=== PATIENT | female | born 1975 | race Caucasian/White ===

== ENCOUNTER 2018-10-23 21:47 | Emergency (ER) | payer BC ==
--- NOTE | 2018-10-23 22:51 | RAD REPORT ---
EXAM DESCRIPTION: RAD - Tib Fib Right - 10/23/2018 10:35 pm CLINICAL HISTORY: Right leg pain FINDINGS: Nondisplaced fracture involves the lateral malleolus with marked soft tissue swelling.
--- NOTE | 2018-10-23 22:57 | ER ---
Nurse's Notes [facility] Name: Ashley Yu Age: 43 yrs Sex: Female : 1975 Arrival Date: 10/23/2018 Time: 21:50 Bed 14 Private MD: Diagnosis: Nondisplaced fracture of lateral malleolus of right fibula Presentation: 10/23 22:05 Presenting complaint: Patient states: that she was getting out of her truck and slipped fc on a rock. Twisting her right knee and ankle. Increasing pain over the past 2 hrs. Transition of care: patient was not received from another setting of care. Onset of symptoms was October 23, 2018 at 20:00. Risk Assessment: Do you want to hurt yourself or someone else? Patient reports no desire to harm self or others. Initial Sepsis Screen: Does the patient meet any 2 criteria? HR > 90 bpm. Yes Does the patient have a suspected source of infection? No. Patient's initial sepsis screen is negative. Care prior to arrival: None. 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 - Social history:: Smoking status: Patient/guardian denies using tobacco, Patient/guardian denies using alcohol, street drugs. - Ebola Screening: : Patient negative for fever greater than or equal to 101.5 degrees Fahrenheit, and additional compatible Ebola Virus Disease symptoms Patient denies exposure to infectious person Patient denies travel to an Ebola-affected area in the 21 days before illness onset. Screenin:05 Abuse screen: Denies threats or abuse. Nutritional screening: No deficits noted. Tuberculosis screening: No symptoms or risk factors identified. Fall Risk Fall in past 12 months (25 points). No secondary diagnosis (0 pts). No IV (0 pts). Ambulatory Aid- None/Bed Rest/Nurse Assist (0 pts). Gait- Weak (10 pts.). Mental Status- Overestimates/Forgets Limitations (15 pts.). Total Major Fall Scale indicates High Risk Score (45 or more points). Fall prevention measures have been instituted. Side Rails Up X 2 Placed Close to Nursing Station Frequent Obs/Assessments Occuring Family Present and informed to notify staff if the need to leave the bedside As available patient and family educated on Fall Prevention Program and Strategies. Assessment: 23:15 General: Appears in no apparent distress. Behavior is calm, cooperative, appropriate wh for age. Pain: Complains of pain in right ankle Pain does not radiate. Pain currently is 5 out of 10 on a pain scale. Quality of pain is described as aching, Aggravated by weight bearing. 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 Cardiovascular: Capillary refill < 3 seconds. Respiratory: Airway is patent Respiratory effort is even, unlabored, Respiratory pattern is regular, symmetrical. GI: Abdomen is round non-distended. : No signs and/or symptoms were reported regarding the genitourinary system. EENT: No signs and/or symptoms were reported regarding the EENT system. Derm: Skin is intact, is healthy with good turgor, Skin is pink, warm \T\ dry. normal. Musculoskeletal: Range of motion: limited in right ankle. Vital Signs: 22:05 BP 155 / 70; Pulse 115; Resp 18; Temp 98.5(O); Pulse Ox 100% on R/A; Weight 163.29 kg fc (R); Height 5 ft. 6 in. (167.64 cm) (R); Pain 6/10; 22:05 Body Mass Index 58.10 (163.29 kg, 167.64 cm) ED Course: 21:50 Patient arrived in ED. ag3 21:52 Jaqueline Roger FNP-C is [facility]. kb 21:52 Nacho Birch MD is Attending Physician. kb 22:05 Satya Cheung is Primary Nurse. wh 22:05 Arm band placed on Patient placed in an exam room, on a stretcher. fc 22:05 Patient has correct armband on for positive identification. Bed in low position. Call fc light in reach. Side rails up X 1. Pulse ox on. NIBP on. 22:05 No provider procedures requiring assistance completed. 22:18 Triage completed. 22:35 Tib Fib Right XRAY In Process Unspecified. EDMS 23:42 Patient did not have IV access during this emergency room visit. Administered Medications: 23:27 Not Given (Patient Refused): [place] 10 mg-325 mg 1 tabs PO once; RASS on ADMIN: Combtv4, wh Very Agttd3, Agttd2, Rstlss1, AlertClm0, Drwsy-1, Lt Sdtn-2, Mod Sdtn-3, Dp Sdtn-4, UnArsble-5 23:27 Drug: TORadol - Ketorolac 15 mg Route: IM; Site: right deltoid; 23:39 Follow up: Response: No adverse reaction Outcome: 22:56 Discharge ordered by . kb 23:42 Discharged to home with crutches, with family. 23:42 Condition: good 23:42 Discharge instructions given to patient, Instructed on discharge instructions, follow up and referral plans. medication usage, crutch walking, POC Ankle Fracture Demonstrated understanding of instructions, follow-up care, medications, crutch walking, Prescriptions given X 1. 23:43 Patient left the ED. Signatures: Dispatcher [employer] EDVA Jaqueline Roger, Carri العراقي RN RN Satya More Mirlande Mobley3
--- NOTE | 2018-10-23 22:57 | EDPHYS ---
Physician Documentation [facility] Name: Ashley Yu Age: 43 yrs Sex: Female : 1975 Arrival Date: 10/23/2018 Time: 21:50 Bed 14 Private MD: ED Physician Nacho Birch HPI: 10/23 23:12 This 43 yrs old Female presents to ER via Ambulatory with complaints of Ankle Injury, kb Knee Injury. 23:12 The patient presents with an injury, pain, swelling, tenderness. The complaints affect kb the right knee, right rogers and anterior aspect of right ankle. Onset: The symptoms/episode began/occurred just prior to arrival. Context: The problem was sustained outdoors, resulted from twisting while getting out of truck, The patient can partially bear weight on the affected extremity. the patient is able to ambulate. Associated signs and symptoms: Pertinent positives: swelling, Pertinent negatives: calf tenderness, fever, nausea, numbness, rash, tingling, vomiting, warmth, weakness. Modifying factors: The symptoms are alleviated by nothing, the symptoms are aggravated by weight bearing. Severity of symptoms: At their worst the symptoms were moderate, in the emergency department the symptoms are unchanged. The patient has not experienced similar symptoms in the past. The patient has not recently seen a physician. STITCHER AROUND: 23:41 LMP N/A - wh Historical: - Allergies: 22:21 TETRACYCLINES; fc 22:21 erythromycin; fc - Home Meds: 22:21 ProAir HFA 90 mcg/actuation inhalation HFAA 2 puffs every 4 hours [Active]; fc - PMHx: 22:21 Asthma; Hypermobility of joints; fc - PSHx: 22:21 ; Cholecystectomy; fc - Immunization history:: Last tetanus immunization: unknown. - Social history:: Smoking status: Patient/guardian denies using tobacco, Patient/guardian denies using alcohol, street drugs. - Ebola Screening: : Patient negative for fever greater than or equal to 101.5 degrees Fahrenheit, and additional compatible Ebola Virus Disease symptoms Patient denies exposure to infectious person Patient denies travel to an Ebola-affected area in the 21 days before illness onset. ROS: 23:10 Constitutional: Negative for fever, chills, and weight loss, Cardiovascular: Negative kb for chest pain, palpitations, and edema, Respiratory: Negative for shortness of breath, cough, wheezing, and pleuritic chest pain, Abdomen/GI: Negative for abdominal pain, nausea, vomiting, diarrhea, and constipation, Back: Negative for injury and pain, : Negative for injury, bleeding, discharge, and swelling, Skin: Negative for injury, rash, and discoloration, Neuro: Negative for headache, weakness, numbness, tingling, and seizure. 23:10 MS/extremity: Positive for injury or acute deformity, ecchymosis, pain, swelling, tenderness. Exam: 23:10 Constitutional: This is a well developed, well nourished patient who is awake, alert, kb and in no acute distress. Head/Face: Normocephalic, atraumatic. Chest/axilla: Normal chest wall appearance and motion. Nontender with no deformity. No lesions are appreciated. Cardiovascular: Regular rate and rhythm with a normal S1 and S2. No gallops, murmurs, or rubs. Normal PMI, no JVD. No pulse deficits. Respiratory: Lungs have equal breath sounds bilaterally, clear to auscultation and percussion. No rales, rhonchi or wheezes noted. No increased work of breathing, no retractions or nasal flaring. Abdomen/GI: Soft, non-tender, with normal bowel sounds. No distension or tympany. No guarding or rebound. No evidence of tenderness throughout. Neuro: Awake and alert, GCS 15, oriented to person, place, time, and situation. Cranial nerves II-XII grossly intact. Motor strength 5/5 in all extremities. Sensory grossly intact. Cerebellar exam normal. Normal gait. 23:10 Musculoskeletal/extremity: Extremities: grossly normal except: noted in the right knee, right rogers and anterior aspect of right ankle: ecchymosis, pain, swelling, tenderness, ROM: limited active range of motion due to pain, Circulation is intact in all extremities. Sensation intact. Weight bearing: can bear weight with assistance only. Vital Signs: 22:05 BP 155 / 70; Pulse 115; Resp 18; Temp 98.5(O); Pulse Ox 100% on R/A; Weight 163.29 kg fc (R); Height 5 ft. 6 in. (167.64 cm) (R); Pain 6/10; 22:05 Body Mass Index 58.10 (163.29 kg, 167.64 cm) fc MDM: 22:05 Patient medically screened. kb 22:53 Data reviewed: vital signs, nurses notes. Data interpreted: Pulse oximetry: on room air kb is 100 %. Interpretation: normal. Test interpretation: by ED physician or midlevel provider: plain radiologic studies, nondisplaced fracture of fibula. Counseling: I had a detailed discussion with the patient and/or guardian regarding: the historical points, exam findings, and any diagnostic results supporting the discharge/admit diagnosis, radiology results, the need for outpatient follow up, a orthopedic surgeon, to return to the emergency department if symptoms worsen or persist or if there are any questions or concerns that arise at home. 10/23 22:14 Order name: Tib Fib Right XRAY; Complete Time: 22:52 kb 10/23 22:55 Order name: Crutches; Complete Time: 23:27 kb 10/23 22:55 Order name: Ortho shoe: boot; Complete Time: 23:27 kb Administered Medications: 23:27 Not Given (Patient Refused): [place] 10 mg-325 mg 1 tabs PO once; RASS on ADMIN: Combtv4, wh Very Agttd3, Agttd2, Rstlss1, AlertClm0, Drwsy-1, Lt Sdtn-2, Mod Sdtn-3, Dp Sdtn-4, UnArsble-5 23:27 Drug: TORadol - Ketorolac 15 mg Route: IM; Site: right deltoid; 23:39 Follow up: Response: No adverse reaction Disposition: 10/24 02:24 Co-signature as Attending Physician, Nacho Birch MD. rn Disposition: 10/23/18 22:56 Discharged to Home. Impression: Nondisplaced fracture of lateral malleolus of right fibula. - Condition is Stable. - Discharge Instructions: Ankle Fracture, [id number]. - Prescriptions for Diclofenac Sodium 75 mg Oral Tablet Sustained Release - take 1 tablet by ORAL route 2 times per day; 30 tablet. - Medication Reconciliation Form, Thank You Letter, Antibiotic Education, Prescription Opioid Use form. - Follow up: Emergency Department; When: As needed; Reason: Worsening of condition. Follow up: Private Physician; When: 2 - 3 days; Reason: Recheck today's complaints, Continuance of care, Re-evaluation by your physician. Signatures: Dispatcher [employer] ED Jaqueline Roger, DOT NET ARCHITECT-C DOT NET ARCHITECT-Ckb Carri Toscano RN Nacho Voss MD MD rn [place], Winsy Corrections: (The following items were deleted from the chart) 10/23 23:43 22:56 10/23/2018 22:56 Discharged to Home. Impression: Nondisplaced fracture of lateral wh malleolus of right fibula. Condition is Stable. Forms are Medication Reconciliation Form, Thank You Letter, Antibiotic Education, Prescription Opioid Use. Follow up: Emergency Department; When: As needed; Reason: Worsening of condition. Follow up: Private Physician; When: 2 - 3 days; Reason: Recheck today's complaints, Continuance of care, Re-evaluation by your physician. kb
[2018-10-23] MEDS ORDERED: KETOROLAC 30 MG/ML INJ ONE (23:13)
== END 2018-10-23 23:43 | disposition home or self-care (01) ==
LOC: ER 21:47
DX: S82.64XA Nondisplaced fracture of lateral malleolus of right fibula, initial encounter for closed fracture (principal); X50.1XXA Overexertion from prolonged static or awkward postures, initial encounter; J45.909 Unspecified asthma, uncomplicated; Z88.1 Allergy status to other antibiotic agents
CPT/HCPCS: 96372; 99284

== ENCOUNTER 2019-10-01 13:02 | Emergency (ER) | payer BC ==
[2019-10-01 14:12] LABS: Absolute Lymphocytes (CBC) 1.3 K/uL (0.7-4.9); Basophils % 0.7 % (0-1.3); Lymphocytes % 16.4 % (15.3-44.8); MPV 8.5 fL (7.6-11.3); RBC Red Blood Cell Count 5.04 M/uL (3.86-4.86)
[2019-10-01 14:22] LABS: Protime INR 1.1
--- NOTE | 2019-10-01 14:30 | RAD REPORT ---
EXAM DESCRIPTION: RAD - Chest Single View - 10/01/2019 2:22 pm CLINICAL HISTORY: CHEST PAIN COMPARISON: None TECHNIQUE: AP portable chest image was obtained 10/01/2019 2:22 pm . FINDINGS: Lungs are clear. Large body habitus and portable technique limit assessment. Heart and vas culature are normal. No measurable pleural effusion and no pneumothorax. No acute bony abnormality se en. No acute aortic findings suspected. IMPRESSION: No acute cardiopulmonary process.
[2019-10-01 14:35] LABS: ALT/SGPT 62 U/L (12-78); Albumin 3.5 g/dL (3.4-5.0); Alkaline Phosphatase 93 U/L (45-117); BUN Blood Urea Nitrogen 4 mg/dL (7-18); Bicarbonate 24 mmol/L (21-32); Bilirubin Direct 0.1 mg/dL (0-0.2); Bilirubin Total 0.5 mg/dL (0.2-1.0); Glucose Level 121 mg/dL (74-106); NT PRO-BNP 17 pg/mL (<125); Protein, Total 8.2 g/dL (6.4-8.2); Sodium Level 140 mmol/L (136-145); Troponin (Emerg Dept Use Only) < 0.02 ng/mL (0.0-0.045)
[2019-10-01 14:36] LABS: AST/SGOT 29 U/L (15-37); Potassium 3.6 mmol/L (3.5-5.1)
[2019-10-01] MEDS ORDERED: KETOROLAC 30 MG/ML INJ ONE (15:16)
--- NOTE | 2019-10-01 17:07 | EDPHYS ---
Physician Documentation [facility] Name: Reina Yu Age: 44 yrs Sex: Female : 1975 Arrival Date: 10/01/2019 Time: 13:05 Bed 6 Private MD: ED Physician Nacho Birch HPI: 09/30 13:42 This 44 yrs old Female presents to ER via Wheelchair with complaints of Chest jmm Pain. 13:42 The patient or guardian reports chest pain that is located primarily in the substernal jmm area. Onset: gradually, at 02:00. The pain radiates to the left arm. Associated signs and symptoms: Pertinent positives: lightheadedness. The chest pain is described as aching, sharp. Duration: The patient or guardian reports a single episode, that is still ongoing, but improving. Modifying factors: The symptoms are alleviated by nothing. the symptoms are aggravated by nothing. The patient has experienced similar episodes in the past. Patient states having chest pain which has been ongoing. Initially evaluated at [facility] 10/07/2019. Patient was then evaluation by ortho on 10/12/2019. Pain may be due to cervical radiculopathy. Pain returned this am at 0200. Has decreased in intensity but never fully resolved. . DIRECTOR CLOUD TRANSFORMATION: 13:16 LMP 09/20/2019 ca1 Historical: - Allergies: 13:16 Erythromycin; ca1 13:16 TETRACYCLINES; ca1 - Home Meds: 13:16 metoprolol tartrate 50 mg Oral tab 1 tab 2 times per day [Active]; ProAir HFA 90 ca1 mcg/actuation inhalation HFAA 2 puffs every 4 hours [Active]; - PMHx: 13:16 Asthma; Hypermobility of joints; Hypertension; ca1 - PSHx: 13:16 ; Cholecystectomy; ca1 - Immunization history:: Adult Immunizations up to date. - Social history:: Smoking status: Patient denies any tobacco usage or history of. ROS: 13:42 Constitutional: Negative for fever, chills, and weight loss. jmm 13:42 Cardiovascular: Positive for chest pain. 13:42 MS/extremity: Positive for pain. 13:42 All other systems are negative. Exam: 13:30 ECG was reviewed by the Attending Physician. jmm 13:42 Constitutional: This is a well developed, well nourished patient who is awake, alert, jmm and in no acute distress. Head/Face: atraumatic. Eyes: EOMI, no conjunctival erythema appreciated ENT: Moist Mucus Membranes Neck: Trachea midline, Supple Chest/axilla: Normal chest wall appearance and motion. Cardiovascular: Regular rate and rhythm. No edema appreciated Respiratory: Normal respirations, no respiratory distress appreciated Abdomen/GI: Non distended, soft Back: Normal ROM Skin: General appearance color normal MS/ Extremity: Moves all extremities, no obvious deformities appreciated, no edema noted to the lower extremities Neuro: Awake and alert, normal gait Psych: Behavior is normal, Mood is normal, Patient is cooperative and pleasant Vital Signs: 13:13 BP 120 / 69; Pulse 95; Resp 15 S; Temp 98.4(TE); Pulse Ox 100% on R/A; Weight 165.56 kg ca1 (R); Height 5 ft. 6 in. (167.64 cm) (R); Pain 4/10; 13:41 BP 136 / 109; Pulse 102; Resp 18; Temp 98.3; Pulse Ox 98% on R/A; ks7 14:50 BP 120 / 72; Pulse 98; Resp 18; Pulse Ox 98% ; mt2 16:08 BP 126 / 84; Pulse 90; Resp 19; Pulse Ox 99% ; bp 17:03 BP 136 / 97; Pulse 100; Resp 18; Pulse Ox 100% ; bp 13:13 Body Mass Index 58.91 (165.56 kg, 167.64 cm) ca1 MDM: 13:44 Patient medically screened. [facility] 17:00 The patient's pulmonary embolism risk score was calculated as follows: No Risks (0 [facility] Pts). Data reviewed: vital signs, nurses notes. Counseling: I had a detailed discussion with the patient and/or guardian regarding: the historical points, exam findings, and any diagnostic results supporting the discharge/admit diagnosis, the need for outpatient follow up, to return to the emergency department if symptoms worsen or persist or if there are any questions or concerns that arise at home. ED course: Chest pain has decreased. Advised to follow up with cardiology for further evaluation. patient is otherwise given strict return precautions. patient understood and agrees with the plan of care. . 09/30 13:42 Order name: Basic Metabolic Panel; Complete Time: 14:39 [facility] 09/30 13:42 Order name: CBC with Diff; Complete Time: 14:39 [facility] 09/30 13:42 Order name: LFT's; Complete Time: 14:39 [facility] 09/30 13:42 Order name: Magnesium; Complete Time: 14:39 [facility] 09/30 13:42 Order name: NT PRO-BNP; Complete Time: 14:39 [facility] 09/30 13:42 Order name: PT-INR; Complete Time: 14:39 [facility] 09/30 13:42 Order name: Troponin (emerg Dept Use Only); Complete Time: 14:39 [facility] 09/30 13:42 Order name: XRAY Chest (1 view); Complete Time: 14:34 [facility] 09/30 13:42 Order name: EKG; Complete Time: 13:43 [facility] 09/30 13:42 Order name: Cardiac monitoring; Complete Time: 13:47 [facility] 09/30 13:42 Order name: EKG - Nurse/Tech; Complete Time: 13:47 [facility] 09/30 15:57 Order name: Troponin (emerg Dept Use Only); Complete Time: 16:47 09/30 13:42 Order name: IV Saline Lock; Complete Time: 14:04 [facility] 09/30 13:42 Order name: Labs collected and sent; Complete Time: 14:04 [facility] 09/30 13:42 Order name: O2 Per Protocol; Complete Time: 13:48 [facility] 09/30 13:42 Order name: O2 Sat Monitoring; Complete Time: 13:48 jmm EC:30 Rate is 97 beats/min. Rhythm is regular. QRS [place] is Normal. [place] interval is normal. QRS jmm interval is normal. QT interval is normal. No Q waves. T waves are Flattened in leads I, II, III, aVL, V1. No ST changes noted. Reviewed by me. Administered Medications: 15:16 Drug: Ketorolac 30 mg Route: IVP; Site: left antecubital; mt2 15:45 Follow up: Response: Pain is decreased mt2 Disposition: 18:01 Co-signature as Attending Physician, Nacho Birch MD. rn Disposition: 10/01/19 17:07 Discharged to Home. Impression: Chest pain, unspecified. - Condition is Stable. - Discharge Instructions: Nonspecific Chest Pain. - Prescriptions for orphenadrine citrate 100 mg Oral Tablet Sustained Release - take 1 tablet by ORAL route 2 times per day As needed; 20 tablet. - Medication Reconciliation Form, Thank You Letter, Antibiotic Education, Prescription Opioid Use form. - Follow up: Private Physician; When: 2 - 3 days; Reason: Recheck today's complaints, Continuance of care, Re-evaluation by your physician. Follow up: Art Kraft MD; When: 2 - 3 days; Reason: Recheck today's complaints, Continuance of care, Re-evaluation by your physician. Follow up: Janes Warner MD; When: 2 - 3 days; Reason: Recheck today's complaints, Continuance of care, Re-evaluation by your physician. Signatures: Dispatcher [employer] EDMS Ashutosh Sequeira PA PA m Nacho Birch MD MD rn [place], Brian RN RN bp Acob, Michelle RN RN ca1 Becky Auguste RN RN mt2 Corrections: (The following items were deleted from the chart) 17:07 17:07 10/01/2019 17:07 Discharged to Home. Impression: Chest pain, unspecified. jmm Condition is Stable. Forms are Medication Reconciliation Form, Thank You Letter, Antibiotic Education, Prescription Opioid Use. Follow up: Private Physician; When: 2 - 3 days; Reason: Recheck today's complaints, Continuance of care, Re-evaluation by your physician. [facility] 17:40 17:07 10/01/2019 17:07 Discharged to Home. Impression: Chest pain, unspecified. bp Condition is Stable. Discharge Instructions: Nonspecific Chest Pain. Forms are Medication Reconciliation Form, Thank You Letter, Antibiotic Education, Prescription Opioid Use. Follow up: Private Physician; When: 2 - 3 days; Reason: Recheck today's complaints, Continuance of care, Re-evaluation by your physician. Follow up: Art Kraft; When: 2 - 3 days; Reason: Recheck today's complaints, Continuance of care, Re-evaluation by your physician. Follow up: Janes Warner; When: 2 - 3 days; Reason: Recheck today's complaints, Continuance of care, Re-evaluation by your physician. [facility]
--- NOTE | 2019-10-01 17:07 | ER ---
Nurse's Notes [facility] Name: Reina Yu Age: 44 yrs Sex: Female : 1975 Arrival Date: 10/01/2019 Time: 13:05 Bed 6 Private MD: Diagnosis: Chest pain, unspecified Presentation: 09/30 13:13 Chief complaint: Patient states: Chest pain since 0200 psych arnp, tight and ca1 radiating to the L arm. Reports lightheadedness and nausea. Coronavirus screen: Proceed with normal triage. Patient denies a cough. Patient denies shortness of breath or difficulty breathing. Patient denies measured and/or subjective temperature greater than 100.4F prior to today's visit. Patient denies travel on a cruise ship or to a country the [facility] currently lists as an affected area. Patient denies contact with known and/or suspected case of COVID-19. Ebola Screen: Patient negative for fever greater than or equal to 101.5 degrees Fahrenheit, and additional compatible Ebola Virus Disease symptoms Patient denies exposure to infectious person. Patient denies travel to an Ebola-affected area in the 21 days before illness onset. No symptoms or risks identified at this time. Initial Sepsis Screen: Does the patient meet any 2 criteria? No. Patient's initial sepsis screen is negative. Does the patient have a suspected source of infection? No. Patient's initial sepsis screen is negative. Risk Assessment: Do you want to hurt yourself or someone else? Patient reports no desire to harm self or others. Onset of symptoms was October 01, 2019. 13:13 Method Of Arrival: Wheelchair ca1 13:13 Acuity: LESLIE 3 ca1 Triage Assessment: 13:19 General: Appears in no apparent distress. uncomfortable, Behavior is cooperative, bp appropriate for age, anxious. Pain: Complains of pain in chest. EENT: No deficits noted. Neuro: No deficits noted. Cardiovascular: Reports chest pain, lightheadedness. Respiratory: No deficits noted. GI: No signs and/or symptoms were reported involving the gastrointestinal system. : No signs and/or symptoms were reported regarding the genitourinary system. Derm: No deficits noted. Musculoskeletal: No deficits noted. 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 - Social history:: Smoking status: Patient denies any tobacco usage or history of. Screenin:21 Abuse screen: Denies threats or abuse. Denies injuries from another. Nutritional bp screening: No deficits noted. Tuberculosis screening: No symptoms or risk factors identified. Fall Risk None identified. Assessment: 13:21 General: SEE TRIAGE NOTE. Pain: Pain does not radiate. Pain began 12 HR AGO. bp 13:43 Also complains of dizziness/lightheaded. intermittent nausea. Neuro: Reports dizziness, ks7 last night at onset of CP. 13:45 Cardiovascular: Reports chest pain, lightheadedness, nausea, since started last night, ks7 today in ER c/o intermittent sharp, stabbing L sided CP, rates 5/10. Respiratory: No deficits noted. GI: Reports nausea, last night. : No deficits noted. Derm: No deficits noted. Musculoskeletal: No signs and/or symptoms reported regarding the musculoskeletal system. Reports chronic back pain hx of cervical radiculopathy. 14:51 Reassessment: INITIAL ORDERS COMPLETE, RESULTS UNREMARKABLE. VS STABLE ON MONITOR. mt2 16:07 Reassessment: REPEAT TROPONIN SENT. VS STABLE ON MONITOR. bp 17:04 Reassessment: REPEAT TROPONIN UNREMARKABLE. RE-EVAL PENDING FOR DISPO. bp 17:39 Reassessment: PT D/C HOME VIA W/C WITH FAMILY, DX WITH NON-CARDIAC CHEST PAIN. bp Vital Signs: 13:13 BP 120 / 69; Pulse 95; Resp 15 S; Temp 98.4(TE); Pulse Ox 100% on R/A; Weight 165.56 kg ca1 (R); Height 5 ft. 6 in. (167.64 cm) (R); Pain 4/10; 13:41 BP 136 / 109; Pulse 102; Resp 18; Temp 98.3; Pulse Ox 98% on R/A; ks7 14:50 BP 120 / 72; Pulse 98; Resp 18; Pulse Ox 98% ; mt2 16:08 BP 126 / 84; Pulse 90; Resp 19; Pulse Ox 99% ; bp 17:03 BP 136 / 97; Pulse 100; Resp 18; Pulse Ox 100% ; bp 13:13 Body Mass Index 58.91 (165.56 kg, 167.64 cm) ca1 ED Course: 13:05 Patient arrived in ED. bp1 13:15 Triage completed. ca1 13:16 Arm band placed on right wrist. EKG completed in triage. Results shown to MD. ca1 13:18 Ashutosh Sequeira PA is PHCP. jmm 13:18 Nacho Birch MD is Attending Physician. jmm 13:19 Kameron Valdes, DAMARIS is Primary Nurse. bp 13:21 Patient has correct armband on for positive identification. Bed in low position. Call bp light in reach. Side rails up X2. monitoring tech on. Pulse ox on. NIBP on. 14:02 Inserted saline lock: 20 gauge in left antecubital area, using aseptic technique. Blood mt2 collected. 14:19 XRAY Chest (1 view) In Process Unspecified. EDMS 17:07 Art Kraft MD is Referral Physician. jmm 17:07 Janes Warner MD is Referral Physician. [facility] 17:39 No provider procedures requiring assistance completed. IV discontinued, intact, bp bleeding controlled, No redness/swelling at site. Pressure dressing applied. Patient maintains SpO2 saturation greater than 95% on room air. Administered Medications: 15:16 Drug: Ketorolac 30 mg Route: IVP; Site: left antecubital; mt2 15:45 Follow up: Response: Pain is decreased mt2 Outcome: 17:07 Discharge ordered by MD. jmm 17:39 Discharged to home via wheelchair, with family. bp 17:39 Condition: stable 17:39 Discharge instructions given to patient, Instructed on discharge instructions, follow up and referral plans. medication usage, Demonstrated understanding of instructions, follow-up care, medications, Prescriptions given X 1. 17:40 Patient left the ED. bp Signatures: Dispatcher [employer] EDMS Ashutosh Sequeira PA PA jmm Peltier, Brian, DAMARIS OCAMPO bp Michelle Gao RN RN ca1 [facility] brothers Kathleen, RN RN ks7 Becky Auguste, RN RN mt2
[2019-10-01 19:21] VITALS: TEMP 98.3
[2019-10-01 19:33] VITALS: BP 136/97; O2SAT 100
--- NOTE | 2019-10-02 07:25 | EKG ---
Test Date: 2019-10-01 Test Time: 13:11:56 Furnace Checker: KATHLEEN MEASUREMENT RESULTS: Intervals: Rate: 97 CA: 150 QRSD: 82 QT: 344 QTc: 436 [place]: P: 43 CA: 150 QRS: 16 T: 73 INTERPRETIVE STATEMENTS: Normal sinus rhythm Cannot rule out Anterior infarct, age undetermined Abnormal ECG No previous ECG available for comparison Electronically Signed On 10-02-19 07:23:05 CDT by Art Kraft
== END 2019-10-01 17:40 | disposition home or self-care (01) ==
LOC: ER 13:02
DX: R07.9 Chest pain, unspecified (principal); I10 Essential (primary) hypertension; J45.909 Unspecified asthma, uncomplicated; Z88.1 Allergy status to other antibiotic agents; Z88.3 Allergy status to other anti-infective agents
CPT/HCPCS: 36415; 71045; 80048; 80076; 83735; 83880; 84484; 85025; 85610; 93005; 96374; 99285